=== PATIENT | female | born 1985 | race Caucasian/White ===

== ENCOUNTER 2016-12-08 10:07 | Emergency (ER) | payer BC ==
[~2016-12-08 10:07] MED LIST: FLEXERIL10 MG PO; MEDROL4 MG/DOSE- PO; NO MEDICATIONS; PEPCID AC20 M1 PO; PHENERGAN25 MG PO; SEPTRA SUSPENS100 ML PO; TYLENOL/CO12 MG/5 M1 PO; ZOFRANODT PO
[2016-12-08 10:15] LABS: URINE SOURCE CLEAN CATCH
[2016-12-08 10:16] LABS: URINE APPEARANCE CLEAR; URINE BILIRUBIN NEG (NEG); URINE BLOOD 1+ (NEG); URINE COLOR YELLOW; URINE GLUCOSE NEG (NORM); URINE KETONE NEG (NEG); URINE LEUKOCYTE ESTERASE TRACE (NEG); URINE NITRATE NEG (NEG); URINE PH 5.5 (5-8); URINE PROTEIN TRACE (NEG); URINE SPECIFIC GRAVITY >=1.030 (1.003-1.035); URINE UROBILINOGEN 0.2 MG/DL (NORM)
[2016-12-08 10:32] LABS: MICRO INDICATED? YES
[2016-12-08 10:33] LABS: CULTURE INDICATED? YES; URINE BACTERIA 1+ (NEG); URINE SQUAMOUS EPITHELIAL CELL FEW /[HPF]
[2016-12-08 10:35] LABS: BUN/CREATININE RATIO 15.71; CALCIUM SERUM 9.6 mg/dL (8.4-10.2); CREATININE SERUM 0.7 mg/dL (0.6-1.4); GLOM FILT RATE Estimated 115.5 mL/min (>60)
== END 2016-12-08 12:45 | disposition home or self-care (01) ==
LOC: SED 10:07
PROVIDERS: Emergency Medicine
DX: K21.9 Gastro-esophageal reflux disease without esophagitis (principal); E86.0 Dehydration; N30.90 Cystitis, unspecified without hematuria; K52.9 Noninfective gastroenteritis and colitis, unspecified; Z98.890 Other specified postprocedural states; Z88.1 Allergy status to other antibiotic agents
CPT/HCPCS: 36415; 80048; 81003; 84703; 87086; 96372; 96374; 96375; 99284; J0500; J1200; J1885; J2405; J2765

== ENCOUNTER 2016-12-08 18:31 | Emergency (ER) | payer BC | END 2016-12-08 19:21 | disposition home or self-care (01) | LOC: SED 18:31 | DX: T78.40XA Allergy, unspecified, initial encounter (principal); Z88.1 Allergy status to other antibiotic agents | CPT/HCPCS: 87651; 96361; 96372; 99283; J1100; J1200 ==